=== PATIENT | female | born 1985 | race Caucasian/White ===

== ENCOUNTER 2017-12-26 20:57 | Emergency (ER) | payer MEDICAID ==
[~2017-12-26] VITALS: Ht 157.5 cm; Wt 63.5 kg
[2017-12-26 20:59] VITALS: Ht 157.5 cm; Wt 63.5 kg
[2017-12-26] MEDS ORDERED: PAXIL40 MG PO (21:01)
[2017-12-26] MEDS ORDERED: TEGRETOL200 MG (21:01)
[2017-12-26] MEDS ORDERED: TRAZODONE HCL300 MG (21:01)
[2017-12-26 21:23] LABS: BASOPHILS 0.8 % (0-2); EOSINOPHILS 3.1 % (0-7); HEMATOCRIT 38.7 % (36.0-48.0); HEMOGLOBIN 13.1 g/dL (12-16); IMMATURE GRANULOCYTES 0.2 % (0-5); LYMPHOCYTES 31.5 % (15-50); MCH 29.8 pg (26.0-34.0); MCHC 33.9 g/dL (31.0-37.0); MCV 88.2 fL (80.0-100.0); MEAN PLATELET VOLUME 8.8 fL (7.4-10.4); MONOCYTES 7.7 % (2-11); NEUTROPHILS 56.7 % (40-80); PLATELET COUNT 344 10x3/uL (130-400); RBC 4.39 10x6/uL (4.00-5.40); RDW 13.4 % (11.5-14.5); WBC 9.2 10x3/uL (4.8-10.8)
[2017-12-26 21:37] LABS: UDS - AMPHET POSITIVE QUAL (NEGATIVE); UDS - BARB NEGATIVE QUAL (NEGATIVE); UDS - BENZO NEGATIVE QUAL (NEGATIVE); UDS - COCAINE NEGATIVE QUAL (NEGATIVE); UDS - OPIATE NEGATIVE QUAL (NEGATIVE); UDS - PCP NEGATIVE QUAL (NEGATIVE); UDS - THC NEGATIVE QUAL (NEGATIVE)
[2017-12-26 21:44] LABS: APPEARANCE CLEAR (CLEAR); BILIRUBIN NEGATIVE (NEGATIVE); COLOR YELLOW (YELLOW); GLUCOSE NEGATIVE (NEGATIVE); KETONE NEGATIVE (NEGATIVE); NITRITE NEGATIVE (NEGATIVE); PROTEIN NEGATIVE (NEGATIVE); SPECIFIC GRAVITY 1.015 (1.005-1.020); UROBILINOGEN NORMAL (NORMAL)
[2017-12-26 21:45] LABS: BACTERIA MODERATE /hpf (NONE SEEN); EPITHELIAL CELLS 0-5 /hpf (0-5); WHITE CELLS - URINE OCC /hpf (0-5)
[2017-12-26 21:46] LABS: ACETAMINOPHEN 12.7 ug/mL (10.0-30.0); AMORPHOUS SEDIMENT <1+ /lpf (NONE SEEN); CALC OSMOLALITY 278 mosm/kg (275-300); CHLORIDE - SERUM 103 mmol/L (98-107); CREATININE - SERUM 0.8 mg/dL (0.6-1.3); GLUCOSE 87 mg/dL (74-106); MUCUS <1+ /lpf (NONE SEEN); SODIUM 141 mmol/L (136-145); THYROID STIMULATING HORMONE 0.23 uIU/mL (0.36-3.74); UREA NITROGEN 10 mg/dL (7-18); eGFR NON AFRICAN AMERICAN 89 mL/min (90-120)
[2017-12-26 21:47] LABS: RED CELLS - URINE 0-5 /hpf (0-5)
[2017-12-26 21:53] LABS: HCG SERUM NEGATIVE (NEGATIVE)
[2017-12-27 03:14] VITALS: BP 122/88
== END 2017-12-27 03:16 ==
LOC: D.ER 20:57
PROVIDERS: Family Medicine
DX: F41.9 Anxiety disorder, unspecified (principal); F15.10 Other stimulant abuse, uncomplicated; F11.10 Opioid abuse, uncomplicated; F99 Mental disorder, not otherwise specified; R45.851 Suicidal ideations; F17.200 Nicotine dependence, unspecified, uncomplicated